=== PATIENT | female | born 1960 | race African-American/Black ===

== ENCOUNTER 2018-06-13 18:24 | Inpatient (IN) | payer BC ==
[~2018-06-13] VITALS: Ht 167.6 cm; Wt 116.7 kg
[2018-06-13 19:27] LABS: BASOPHILS % 0.4 % (0.0-2.0); EOSINOPHILS % 1.8 % (0.0-5.0); HEMATOCRIT. 35.8 % (36.0-48.0); HEMOGLOBIN. 11.2 g/dL (12.0-16.0); LYMPHOCYTES % 31.3 % (20.0-50.0); MEAN CORPUSCULAR HEMOGLOBIN 22.1 pg (28.0-32.0); MEAN CORPUSCULAR VOLUME 70.9 fL (81.0-99.0); MEAN PLATELET VOLUME 9.8 fl (7.4-10.4); MONOCYTES % 5.8 % (2.0-8.0); NEUTROPHILS % 60.7 % (40.0-76.0); PLATELET 199 x1000/uL (130-400); RED BLOOD CELL COUNT 5.05 mill/uL (4.2-5.4); RED CELL DISTRIBUTION WIDTH 16.3 % (11.6-14.6)
[2018-06-13] MEDS ORDERED: SODIUM CHLORIDE 0.9% 100 ML IV ONE ×2 (19:30→20:15)
[2018-06-13 19:31] LABS: CHLORIDE 108 mEq/L (98-107)
[2018-06-13] MEDS ORDERED: ONDANSETRON HCL 4MG/2ML INJ IV ONE (20:15)
[2018-06-13] MEDS ORDERED: MECLIZINE 25MG TABLET PO ONE (20:15)
[2018-06-13] MEDS ORDERED: LORAZEPAM 2MG/ML CPJ IV ONE (20:15)
[2018-06-13 20:42] LABS: CLARITY URINE CLOUDY (CLEAR); COLOR URINE YELLOW (YELLOW); KETONES URINE NEGATIVE (NEGATIVE); LEUKOCYTE ESTERASE URINE 2+ (NEGATIVE); NITRITE URINE NEGATIVE (NEGATIVE); OCCULT BLOOD URINE 3+ (NEGATIVE); PROTEIN URINE TRACE (NEGATIVE); SPECIFIC GRAVITY URINE 1.021 (1.005-1.030); UROBILINOGEN URINE 0.2 E.U./dL (0.2-1.0)
[2018-06-14] MEDS ORDERED: MAGNESIUM/ALUMINUM HYDROXIDE/SIMETHICONE 30ML UDC PO PRN (03:30)
[2018-06-14] MEDS ORDERED: DOCUSATE SODIUM 100MG CAPSULE PO PRN (03:30)
[2018-06-14] MEDS ORDERED: GUAIFENESIN 200MG/10ML SUGAR FREE UDC PO PRN (03:30)
[2018-06-14] MEDS ORDERED: HYDROCODONE/ACETAMINOPHEN 5/325MG TABLET PO PRN (03:30)
[2018-06-14] MEDS ORDERED: ONDANSETRON HCL 4MG/2ML INJ IV PRN (03:30)
[2018-06-14] MEDS ORDERED: ACETAMINOPHEN 325MG TABLET PO PRN (03:30)
[2018-06-14] MEDS ORDERED: CLONIDINE 0.1MG TABLET PO PRN (03:30)
[2018-06-14 04:00] VITALS: BP 115/56
[2018-06-14 04:28] VITALS: BP 115/56
[2018-06-14] MEDS ORDERED: MELO-104 MT (04:46)
[2018-06-14] MEDS ORDERED: ERGO400C MT (04:47)
[2018-06-14] MEDS: SODIUM CHLORIDE 0.45% 1,000 ML IV SCH ×2 (06:48→20:33)
[2018-06-14] MEDS: LEVOFLOXACIN 500MG PREMIX 100 ML IV SCH (06:51)
[2018-06-14 08:00] VITALS: BP 108/50
[2018-06-14] MEDS: MECLIZINE 25MG TABLET PO PRN ×2 (09:27→18:44)
[2018-06-14 12:00] VITALS: BP 117/67
[2018-06-14 16:00] VITALS: BP 119/65
[2018-06-14 20:00] VITALS: BP 112/62
[2018-06-15] VITALS: BP 121/60
[2018-06-15] MEDS: LEVOFLOXACIN 500MG PREMIX 100 ML IV SCH (03:50)
[2018-06-15 04:00] VITALS: BP 110/62
[2018-06-15] MEDS: SODIUM CHLORIDE 0.45% 1,000 ML IV SCH (05:47)
[2018-06-15 07:40] LABS: CHLORIDE 108 mEq/L (98-107)
[2018-06-15 07:43] LABS: BASOPHILS % 0.9 % (0.0-2.0); EOSINOPHILS % 2.8 % (0.0-5.0); HEMATOCRIT. 34.9 % (36.0-48.0); LYMPHOCYTES % 42.5 % (20.0-50.0); MEAN CORPUSCULAR HEMOGLOBIN 22.2 pg (28.0-32.0); MEAN CORPUSCULAR VOLUME 70.7 fL (81.0-99.0); MEAN PLATELET VOLUME 9.9 fl (7.4-10.4); MONOCYTES % 6.8 % (2.0-8.0); PLATELET 178 x1000/uL (130-400); RED BLOOD CELL COUNT 4.94 mill/uL (4.2-5.4); RED CELL DISTRIBUTION WIDTH 16.2 % (11.6-14.6)
[2018-06-15 08:00] VITALS: BP 136/74
[2018-06-15 12:00] VITALS: BP 100/60
[2018-06-15 14:15] VITALS: BP 100/60
[2018-06-15] MEDS ORDERED: MECL-109 PO (14:26)
[2018-06-15 16:00] VITALS: BP 120/74
== END 2018-06-15 18:30 | disposition home or self-care (01) | DRG 690 ==
LOC: ER 18:59 → 6EST 06-14 00:52 → EDBEDREQ 06-14 00:54 → EDBEDREQTM 06-14 00:54 → ENRESERV 06-14 01:59
PROVIDERS: ADMIT Hospitalist; ATTEND Hospitalist
DX: N39.0 Urinary tract infection, site not specified (principal); H81.10 Benign paroxysmal vertigo, unspecified ear; D64.9 Anemia, unspecified
CPT/HCPCS: 36415; 83880; 84443; 84484; 93005; 96374; 96375; 99285; J1956; J2060; J2405; J7050; J8597